=== PATIENT | female | born 1980 | race Caucasian/White ===

== ENCOUNTER 2020-10-17 23:48 | Emergency (ER) | payer OTHER ==
[~2020-10-17] VITALS: Ht 149.9 cm; Wt 57.6 kg
[2020-10-17 23:52] VITALS: BP 148/104
--- NOTE | 2020-10-17 23:58 | NUR ---
PT AMBULATED TO BED #11
--- NOTE | 2020-10-18 00:02 | NUR ---
40 y/o female presented to ED c/o rt sided lower tooth pain x 2 days. Pt describes pain "throbbing" x 2 days. Observed swelling on rt side of cheek, tender upon palpation. Pt states she has had this pain before in this tooth but is unable to afford to get it fixed. Pt denies fever, chills, n/v/d. Pt took ibuprofen 800 mg x 2 hrs ago w/ no relief. Pt sitting up in bed, locked and in lowest position, HOB elevated, side rail x1. ERMD at bedside for medical evaluation. pmh: jason VASQUES
--- NOTE | 2020-10-18 00:03 | NUR ---
ERMD AT BEDSIDE FOR MEDICAL EVALUATION.
[2020-10-18] MEDS ORDERED: traMADol 50 MG TAB PO ONE (00:10)
[2020-10-18] MEDS ORDERED: KETOROLAC 60 MG/2 ML VIAL IM ONE (00:10)
[2020-10-18] MEDS ORDERED: AMOXICILLIN 500 MG CAP PO ONE (00:10)
[2020-10-18 00:42] VITALS: BP 148/104
--- NOTE | 2020-10-18 00:42 | NUR ---
Patient discharged with v/s stable. Written and verbal after care instructions given and explained. Patient alert, oriented and verbalized understanding of instructions. Ambulatory with steady gait. All questions addressed prior to discharge. ID band removed. Patient advised to follow up with PMD. Rx of AMOXICILLIN AND TRAMADOL HYDROCHLORIDE given. Patient educated on indication of medication including possible reaction and side effects. Opportunity to ask questions provided and answered.
== END 2020-10-18 00:42 | disposition home or self-care (01) ==
LOC: MED 23:48
DX: K04.7 Periapical abscess without sinus (principal); R03.0 Elevated blood-pressure reading, without diagnosis of hypertension
CPT/HCPCS: 96372; 99283; J1885

== ENCOUNTER 2021-07-13 17:53 | Emergency (ER) | payer OTHER ==
[~2021-07-13] VITALS: Ht 144.8 cm; Wt 135.2 kg
[2021-07-13 17:57] VITALS: BP_SYST 144; BP_SYST 146; BP_DIAS 100; BP_DIAS 99
--- NOTE | 2021-07-13 18:04 | NUR ---
PT SENT TO LOBBY
[2021-07-13 19:36] LABS: BASOPHILS % (AUTO) 0.3 % (0.0-2.0); EOSINOPHILS # (AUTO) 0.2 K/uL (0-0.4); EOSINOPHILS % (AUTO) 3.6 % (0.0-4.0); HEMATOCRIT 35.6 % (36-48); HEMOGLOBIN 11.8 g/dL (12.0-16.0); LYMPHOCYTES # (AUTO) 1.8 K/uL (2.5-16.5); MEAN CORPUSCULAR HEMOGLOBIN 29 pg (27-31); MEAN CORPUSCULAR HGB CONC 33 g/dL (33-37); MEAN CORPUSCULAR VOLUME 88.3 fL (80-94); MONOCYTES # (AUTO) 0.6 K/uL (0.8-1.0); MONOCYTES % (AUTO) 9.2 % (1.7-9.3); NEUTROPHILS # (AUTO) 3.5 K/uL (1.8-7.7); NEUTROPHILS % (AUTO) 57.9 % (42.2-75.2); PLATELET COUNT (AUTO) 181 K/uL (140-450); RED BLOOD CELL COUNT(AUTO) 4.03 MIL/uL (4.20-5.40); RED CELL DISTRIBUTION WIDTH 15.9 % (11.6-13.7); WHITE BLOOD COUNT (AUTO) 6.1 K/uL (4.8-10.8)
--- NOTE | 2021-07-13 19:40 | NUR ---
PT TAKEN TO BED #4
[2021-07-13 19:46] LABS: APPEARANCE,URINE HAZY (CLEAR); BILIRUBIN,URINE NEGATIVE (NEGATIVE); BLOOD, URINE 3+ (NEGATIVE); COLOR,URINE PINK (YELLOW); LEUKOCYTE ESTERASE ,URINE TRACE (NEGATIVE); NITRITE, URINE NEGATIVE (NEGATIVE); UGLUCOSE NEGATIVE (NEGATIVE)
[2021-07-13 19:52] LABS: PROTHROMBIN TIME 9.9 secs (10.8-13.4)
[2021-07-13 20:08] LABS: RBC,URINE TOO NUMEROUS TO COUN /HPF (0-5); WBC,URINE 0-5 /HPF (0-5)
--- NOTE | 2021-07-13 20:20 | NUR ---
41/F BIB SELF WITH C/O VAGINAL BLEEDING BEGGINING AT NOON, REPORTS BLEEDING IS HEAVY HAS HAD X1 BLOOD CLOT. PT DENIES SEEING AN OB, REPORTS 4 POSITIVE TESTS AT HOME X2 WEEKS AGO. PT ALSO HAD ABDOMINAL CRAMPING BUT DENIES ANY PAIN AT THIS TIME. DENIES ANY DIZZYNESS, N/V, URINARY SYMPTOMS, CP, SOB, FEVER OR CHILLS. PT DENIES ABNORMAL VAGINAL DISCHARGE. PATIENT IS A0. PT LAYING IN BED W US AT BEDSIDE. BREATHING EVEN AND UNLABORED. NAD NOTED, WILL CONTINUE TO MONITOR. PMH:DENIES NKA
--- NOTE | 2021-07-13 20:21 | NUR ---
US AT BEDSIDE.
--- NOTE | 2021-07-13 21:23 | NUR ---
PT SITTING IN ROOM IN BED LOCKED IN LOWEST POSITION. DENIES ANY NAUSEA OR PAIN. BREATHING EVEN AND UNLABORED. NAD NOTED, WILL CONTINUE TO MONITOR.
[2021-07-13 22:54] VITALS: BP 153/87
--- NOTE | 2021-07-13 22:54 | NUR ---
Patient discharged with v/s stable. Written and verbal after care instructions given and explained. Patient verbalized understanding. Ambulatory with steady gait. All questions addressed prior to discharge. Advised to follow up with PMD.
== END 2021-07-13 22:54 | disposition home or self-care (01) ==
LOC: MED 17:53
DX: O03.9 Complete or unspecified spontaneous abortion without complication (principal)
CPT/HCPCS: 36415; 76801; 81001; 81025; 84702; 85025; 85610; 85730; 86900; 86901; 99284; Q0092

== ENCOUNTER 2021-07-17 09:23 | Emergency (ER) | payer OTHER ==
[~2021-07-17] VITALS: Ht 144.8 cm; Wt 133.8 kg
[2021-07-17 09:25] VITALS: BP 142/97
--- NOTE | 2021-07-17 09:41 | NUR ---
DR WEN AT BEDSIDE EXAMINING PT
--- NOTE | 2021-07-17 09:46 | NUR ---
41 Y FEMALE FROM HOME SEEN HERE X3 DAYS AGO DUE TO A MISCARRIAGE. PT WAS TOLD TO COME BACK IN 3 DAYS TO HAVE HER HCG LEVELS RECHECKED TO DETERMINE STATUS MISCARRIAGE. PT STATED SHE IS ACTIVELY HAVING LOWER ABDOMINAL CRAMPS, BLOATING AND IS ACTIVELY BLEEDING AT THIS TIME. PT STATED BLEEDING IS CURRENTLY LIGHT AT THIS TIME AND PAIN IS 1/10. PMH: DENIES OB HX: NKA
[2021-07-17 10:06] LABS: HEMATOCRIT 33.8 % (36-48); HEMOGLOBIN 11.2 g/dL (12.0-16.0)
[2021-07-17 11:57] VITALS: BP 142/97
== END 2021-07-17 11:57 | disposition home or self-care (01) ==
LOC: MED 09:23
DX: O03.9 Complete or unspecified spontaneous abortion without complication (principal)
CPT/HCPCS: 36415; 81002; 81025; 84702; 85018; 99285